=== PATIENT | female | born 1955 | race Caucasian/White ===

== ENCOUNTER → 2016-07-28 | Outpatient (CLI) | payer OTHER ==
[~2016-07-28] MED LIST: ENOX60IN SQ
[2016-07-28 15:17] LABS: BASO % 1.1 %; BASO ABS # 0.06 K/uL (0-0.2); COMPLETE YES; EOS % 2.1 %; HEMATOCRIT 43.3 % (37-47); IG% 0.4 %; LYMPH % 32.5 %; LYMPH ABS # 1.74 K/uL (1.2-3.4); MEAN CELL VOLUME 91.4 fL (80-100); MEAN CORPUSCULAR HEMOGLOBIN 29.7 pg (25-34); MEAN CORPUSCULAR HGB CONC 32.6 g/dl (32-36); MEAN PLATELET VOLUME 9.5 fL (7.4-10.4); MONO % 6.9 %; PLATELET COUNT 364 K/uL (130-400); RED BLOOD COUNT 4.74 M/uL (4.2-5.4); WHITE BLOOD COUNT 5.35 K/uL (4.8-10.8)
[2016-07-28 15:25] LABS: ALT/SGPT 21 U/L (12-78); AST/SGOT 17 U/L (15-37); BLOOD UREA NITROGEN 18 mg/dl (7-18); BUN/CREATININE RATIO 21.3 (10-20); CALCIUM 9.4 mg/dl (8.5-10.1); CARBON DIOXIDE 30 mmol/L (21-32); CHLORIDE 108 mmol/L (98-107); CREATININE 0.85 mg/dl (0.60-1.20); GLUCOSE 85 mg/dl (70-99); SODIUM 143 mmol/L (136-145)
[2016-07-28 15:27] LABS: ALB/GLOB RATIO 1.2 (0.9-2); ALKALINE PHOSPHATASE 89 U/L (45-117); CHOLESTEROL 228 mg/dl (0-200); CHOLESTEROL/HDL RATIO 2.6; HDL CHOLESTEROL 89 mg/dl; LDL CHOLESTEROL CALCULATED 128 mg/dl; TRIGLYCERIDES 53 mg/dl (0-150); VERY LOW DENSITY LIPOPROT CALC 11 mg/dl
== END | disposition home or self-care (01) ==
LOC: C.LAB1850 13:57
PROVIDERS: ATTEND Physician Assistant
DX: Z00.00 Encounter for general adult medical examination without abnormal findings (principal)

== ENCOUNTER → 2016-09-02 | Outpatient (CLI) | payer OTHER ==
--- NOTE | 2016-09-02 15:22 | MAMMOGRAPHY REPORT ---
BILATERAL DIGITAL SCREENING MAMMOGRAM TOMOSYNTHESIS WITH CAD: 09/02/2016 CLINICAL HISTORY: Routine screening. TECHNIQUE: Breast tomosynthesis in addition to standard 2D mammography was performed. Current study was also evaluated with a Computer Aided Detection (CAD) system. COMPARISON: Comparison is made to exams dated: 09/01/2015 mammogram, 04/22/2014 mammogram, 09/13/2012 m ammogram, 11/04/2010 mammogram, 10/01/2009 mammogram - [facility], and 09/12/2006. BREAST COMPOSITION: The tissue of both breasts is heterogeneously dense, which may obscure small mas ses. FINDINGS: No suspicious masses, calcifications, or areas of architectural distortion are noted in ei ther breast. There has been no significant interval change compared to prior exams. IMPRESSION: ACR BI-RADS CATEGORY 1: NEGATIVE There is no mammographic evidence of malignancy. A 1 year screening mammogram is recommended. The pa tient will receive written notification of the results. Approximately 10% of breast cancers are not detected with mammography. A negative mammographic report should not delay biopsy if a clinically suggestive mass is present. Estelle De La Rosa M.D. /:09/02/2016 12:37:32 Talent Management Specialist: Ray MOIMN(Mago)(M), [facility] letter sent: Normal 1/2 BI-RADS Code: ACR BI-RADS Category 1: Negative
== END | disposition home or self-care (01) ==
LOC: C.MAMM 10:06
PROVIDERS: ATTEND Internal Medicine
DX: Z12.31 Encounter for screening mammogram for malignant neoplasm of breast (principal)

== ENCOUNTER 2016-10-29 14:39 | Emergency (ER) | payer OTHER ==
[~2016-10-29] VITALS: Ht 154.9 cm; Wt 66.0 kg
[2016-10-29 14:46] VITALS: TEMP 36.9; Ht 154.9 cm; Wt 66.0 kg
[2016-10-29] MEDS ORDERED: SODIUM CHLORIDE 0.9% 1000ML 1,000 ML IV STA (15:11)
[2016-10-29] MEDS ORDERED: SODIUM CHLORIDE 0.9% 1000ML 500 ML IV STA (15:11)
[2016-10-29 16:09] LABS: BASO ABS # 0.05 K/uL (0-0.2); COMPLETE YES; EOS % 2.9 %; HEMATOCRIT 38.9 % (37-47); IG% 0.2 %; LYMPH % 32.6 %; LYMPH ABS # 1.68 K/uL (1.2-3.4); MEAN CELL VOLUME 90.7 fL (80-100); MEAN CORPUSCULAR HGB CONC 34.2 g/dl (32-36); MEAN PLATELET VOLUME 9.1 fL (7.4-10.4); MONO % 7.2 %; NEUT % 56.1 %; PLATELET COUNT 320 K/uL (130-400); RED BLOOD COUNT 4.29 M/uL (4.2-5.4); WHITE BLOOD COUNT 5.15 K/uL (4.8-10.8)
[2016-10-29 16:20] LABS: INR 0.9 (0.9-1.1); PROTHROMBIN TIME (PATIENT) 10.1 SECONDS (9.0-12.0)
[2016-10-29 16:24] LABS: ALT/SGPT 18 U/L (12-78); AST/SGOT 17 U/L (15-37); BLOOD UREA NITROGEN 14 mg/dl (7-18); BUN/CREATININE RATIO 16.4 (10-20); CARBON DIOXIDE 29 mmol/L (21-32); CHLORIDE 109 mmol/L (98-107); CREATININE 0.88 mg/dl (0.60-1.20); GLUCOSE 82 mg/dl (70-99); SODIUM 143 mmol/L (136-145)
[2016-10-29 16:29] LABS: ALB/GLOB RATIO 1.1 (0.9-2); ALKALINE PHOSPHATASE 84 U/L (45-117); CKMB/CK RATIO 1.1 (0-3.0)
--- NOTE | 2016-10-29 18:29 | DIAGNOSTIC IMAGING REPORT ---
LEFT VENOUS DOPP LOWER EXT UNILAT CLINICAL HISTORY: 61 years-old Female presenting with LEFT, EVAL DVT. TECHNIQUE: Real-time grayscale and color and spectral Doppler ultrasound imaging of the veins of the left lower extremity was performed. Compression and augmentation were also utilized. COMPARISON: None. FINDINGS: Left: Common femoral vein: Patent. Femoral vein: Patent. Greater saphenous vein: Patent. Popliteal vein: Patent. Calf veins: Limited visualization. Other: None. IMPRESSION: No evidence of deep venous thrombosis. Electronically signed by: Micah Ruiz M.D. 10/29/2016 6:28 PM Dictated Date/Time: 10/29/2016 6:26 PM
--- NOTE | 2016-10-29 18:50 | DIAGNOSTIC IMAGING REPORT ---
CHEST 2 VIEWS ROUTINE CLINICAL HISTORY: 61 years-old Female presenting with LEFT CHEST PAIN. TECHNIQUE: PA and lateral views of the chest were obtained. COMPARISON: 06/03/2008. FINDINGS: Cardiomediastinal silhouette normal. Lungs and pleural spaces clear. Osseous structures normal. Cholecystectomy clips. IMPRESSION: 1. No acute cardiopulmonary disease. Electronically signed by: Micah Ruiz M.D. 10/29/2016 6:48 PM Dictated Date/Time: 10/29/2016 6:48 PM
--- NOTE | 2016-10-29 18:52 | DIAGNOSTIC IMAGING REPORT ---
C-SPINE ROUTINE 4 OR 5 VIEWS CLINICAL HISTORY: 61 years-old Female presenting with LEFT CERVICAL RADICULOPATHY, pain in the neck and left arm, tingling extending into the left arm. TECHNIQUE: Lateral, bilateral oblique, frontal, and open-mouth odontoid views of the cervical spine were obtained. COMPARISON: None. FINDINGS: Straightening of normal cervical lordosis, possibly positional. Maintenance of vertebral body heights and intervertebral disc spaces. Minimal degenerative change evident. No osseous neural foraminal narrowing is radiographically apparent. Lateral masses of C1 articulate normally with C2. Normal predental interval. No prevertebral soft tissue swelling. IMPRESSION: Straightening of normal cervical lordosis likely positional. Minimal degenerative change without radiographic evidence of osseous neural foraminal narrowing. Electronically signed by: Micah Ruiz M.D. 10/29/2016 6:50 PM Dictated Date/Time: 10/29/2016 6:49 PM
--- NOTE | 2016-10-29 19:59 | DIAGNOSTIC IMAGING REPORT ---
(CHEST FOR PE) ANGIO WITH CLINICAL HISTORY: 61 years-old Female presenting with left chest pain, history of pulmonary embolus. TECHNIQUE: Multidetector CT angiography of the chest was performed after administration of intravenous contrast. 3-D volumetric and maximum intensity projection (MIP) images were subsequently reconstructed for review. IV contrast: 95 mL of Optiray 320. A dose lowering technique was used consistent with the principles of ALARA (as low as reasonably achievable). COMPARISON: 06/03/2008. CT DOSE (mGy.cm): The estimated cumulative dose is 174.59 mGy.cm. FINDINGS: Quill Machine Tender topogram: Unremarkable. Pulmonary vasculature: The study is adequate for assessment of the pulmonary vascular tree. No filling defect within the pulmonary arteries to suggest embolus. Main pulmonary artery not enlarged. No flattening of the interventricular septum. No intracardiac filling defect. Remaining chest: On soft tissue windows, normal thyroid and thoracic inlet. No axillary, supraclavicular, hilar, or mediastinal lymphadenopathy. Normal aorta. Normal heart size. No pericardial or pleural effusion. Cholecystectomy clips noted. On lung windows, dependent reticular opacities likely atelectasis. On bone windows, degenerative changes of the thoracic spine. IMPRESSION: 1. No evidence of pulmonary embolus or acute intrathoracic pathology. Electronically signed by: Micah Ruiz M.D. 10/29/2016 7:57 PM Dictated Date/Time: 10/29/2016 7:51 PM
[2016-10-29] MEDS ORDERED: OPTIRAY 320 IV PRN (20:00)
--- NOTE | 2016-10-29 20:04 | EMERGENCY ROOM VISIT NOTE ---
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 Patient had a DVT and PE in 1994, was treated with Coumadin. She states that it was "idiopathic" at that time. She had a cholecystectomy in spring, and a couple of weeks later was diagnosed with a left lower extremity DVT. She was treated with Lovenox for 4 days, then with Xarelto for almost a year. She had an ultrasound 1 year ago that showed that the DVT had cleared, and her doctor felt that it was reasonable to discontinue her anticoagulation. Patient reports that she traveled by vehicle to the [facility] about 10 days ago. While there, she began to notice pain in the left calf radiating to the popliteal space. She also reports some associated "pins and needles as "a sensation that her leg felt "like a log." She has lymphedema in the left lower extremity, and states that her left leg is chronically larger than her right. She denies any changes in this. She has not noticed any increased redness or warmth, but has had a few insect bites on the left lower leg. There is no injury or unusual activity that could have strained a muscle recently. She also has noticed some stabbing anterior left-sided chest pain, particularly worse when she takes a deep breath. She does feel it through to the left scapular region as well. She denies any palpitations. She has a known history of cervical spine issues and has been going to physical therapy for some time. She has chronic pins and needles and pain into the left arm, neck and into the axillary region. She states that she was having a difficult time discerning whether the pain in her chest was coming from her arm/neck or whether it was true chest pain. She returned from [place] by vehicle yesterday, and had a [address] She denies any symptoms in the right leg. Review of Systems Review of systems as per HPI. All other systems reviewed were negative. 10 systems reviewed. 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 See Problem List. Family History Cancer Hypertension Social History Smoking Status: Never Smoker Alcohol Use: none Housing Status: lives with significant other Occupation Status: employed Current/Historical Medications No Active Prescriptions or Reported Meds Physical Exam Vital Signs Date Time Temp Pulse Resp B/P (MAP) Pulse Ox O2 Delivery O2 Flow Rate FiO2 10/29/16 20:28 78 18 167/90 98 10/29/16 17:55 61 18 124/84 100 Room Air 10/29/16 16:03 63 18 122/78 97 Room Air 10/29/16 14:46 36.9 75 18 123/78 97 Room Air Physical Exam CONSTITUTIONAL: Patient is a pleasant, well-appearing 61-year-old white female who is awake and alert and in no acute distress. EYES: Pupils equal, round, reactive to light and accommodation. EOMs intact without nystagmus. Sclera are anicteric. ENT: Tympanic membranes intact, with normal landmarks. External canals are clear. Oral and nasopharynx are clear. Mucous membranes are moist, no lesions , tongue and gums appear normal. NECK: No bruits auscultated. Supple without lymphadenopathy. No thyromegaly. No meningeal signs. Full active range of motion without discomfort. CARDIOVASCULAR: Regular rate and rhythm, with normal S1 and S2, no murmur or gallop or rub is heard. No carotid bruits auscultated. No JVD. Peripheral pulses easy to palpable. RESPIRATORY: Breath sounds equal and clear to auscultation without wheezes, rales, or rhonchi heard. Full and equal chest expansion without accessory muscle use or retractions. MUSCULOSKELETAL: Full range of motion of extremities x 4 with good strength. No cyanosis, edema, joint tenderness or swelling. No deformity. Minimal tenderness noted in the medial aspect of the left calf. There is no erythema, increased warmth or induration. No palpable cords. INTEGUMENTARY: No lesions or rash, normal skin turgor. NEUROLOGICAL: Alert, oriented, and cooperative. Cranial nerves, sensation and strength grossly intact. Upper and lower extremity DTRs are equal and symmetrical bilaterally. Pupils round, equal, and react to light, EOMs are full. LYMPH: No lymphadenopathy. Medical Decision & Procedures ER Provider Diagnostic Interpretation: (CHEST FOR PE) ANGIO WITH CLINICAL HISTORY: 61 years-old Female presenting with left chest pain, history of pulmonary embolus. TECHNIQUE: Multidetector CT angiography of the chest was performed after administration of intravenous contrast. 3-D volumetric and maximum intensity projection (MIP) images were subsequently reconstructed for review. IV contrast: 95 mL of Optiray 320. A dose lowering technique was used consistent with the principles of ALARA (as low as reasonably achievable). COMPARISON: 06/03/2008. CT DOSE (mGy.cm): The estimated cumulative dose is 174.59 mGy.cm. FINDINGS: Integration Analyst topogram: Unremarkable. Pulmonary vasculature: The study is adequate for assessment of the pulmonary vascular tree. No filling defect within the pulmonary arteries to suggest embolus. Main pulmonary artery not enlarged. No flattening of the interventricular septum. No intracardiac filling defect. Remaining chest: On soft tissue windows, normal thyroid and thoracic inlet. No axillary, supraclavicular, hilar, or mediastinal lymphadenopathy. Normal aorta. Normal heart size. No pericardial or pleural effusion. Cholecystectomy clips noted. On lung windows, dependent reticular opacities likely atelectasis. On bone windows, degenerative changes of the thoracic spine. IMPRESSION: 1. No evidence of pulmonary embolus or acute intrathoracic pathology. CHEST 2 VIEWS ROUTINE CLINICAL HISTORY: 61 years-old Female presenting with LEFT CHEST PAIN. TECHNIQUE: PA and lateral views of the chest were obtained. COMPARISON: 06/03/2008. FINDINGS: Cardiomediastinal silhouette normal. Lungs and pleural spaces clear. Osseous structures normal. Cholecystectomy clips. IMPRESSION: 1. No acute cardiopulmonary disease. C-SPINE ROUTINE 4 OR 5 VIEWS CLINICAL HISTORY: 61 years-old Female presenting with LEFT CERVICAL RADICULOPATHY, pain in the neck and left arm, tingling extending into the left arm. TECHNIQUE: Lateral, bilateral oblique, frontal, and open-mouth odontoid views of the cervical spine were obtained. COMPARISON: None. FINDINGS: Straightening of normal cervical lordosis, possibly positional. Maintenance of vertebral body heights and intervertebral disc spaces. Minimal degenerative change evident. No osseous neural foraminal narrowing is radiographically apparent. Lateral masses of C1 articulate normally with C2. Normal predental interval. No prevertebral soft tissue swelling. IMPRESSION: Straightening of normal cervical lordosis likely positional. Minimal degenerative change without radiographic evidence of osseous neural foraminal narrowing. LEFT VENOUS DOPP LOWER EXT UNILAT CLINICAL HISTORY: 61 years-old Female presenting with LEFT, EVAL DVT. TECHNIQUE: Real-time grayscale and color and spectral Doppler ultrasound imaging of the veins of the left lower extremity was performed. Compression and augmentation were also utilized. COMPARISON: None. FINDINGS: Left: Common femoral vein: Patent. Femoral vein: Patent. Greater saphenous vein: Patent. Popliteal vein: Patent. Calf veins: Limited visualization. Other: None. IMPRESSION: No evidence of deep venous thrombosis. Laboratory Results 10/29/16 16:00 Red Blood Count 4.29, Mean Corpuscular Volume 90.7, Mean Corpuscular Hemoglobin 31.0, Mean Corpuscular Hemoglobin Concent 34.2, Mean Platelet Volume 9.1, Neutrophils (%) (Auto) 56.1, Lymphocytes (%) (Auto) 32.6, Monocytes (%) (Auto) 7.2, Eosinophils (%) (Auto) 2.9, Basophils (%) (Auto) 1.0, Neutrophils # (Auto) 2.89, Lymphocytes # (Auto) 1.68, Monocytes # (Auto) 0.37, Eosinophils # (Auto) 0.15, Basophils # (Auto) 0.05 10/29/16 16:00 Test 10/29/16 16:00 White Blood Count 5.15 K/uL (4.8-10.8) Red Blood Count 4.29 M/uL (4.2-5.4) Hemoglobin 13.3 g/dL (12.0-16.0) Hematocrit 38.9 % (37-47) Mean Corpuscular Volume 90.7 fL (80-100) Mean Corpuscular Hemoglobin 31.0 pg (25-34) Mean Corpuscular Hemoglobin Concent 34.2 g/dl (32-36) Platelet Count 320 K/uL (130-400) Mean Platelet Volume 9.1 fL (7.4-10.4) Neutrophils (%) (Auto) 56.1 % Lymphocytes (%) (Auto) 32.6 % Monocytes (%) (Auto) 7.2 % Eosinophils (%) (Auto) 2.9 % Basophils (%) (Auto) 1.0 % Neutrophils # (Auto) 2.89 K/uL (1.4-6.5) Lymphocytes # (Auto) 1.68 K/uL (1.2-3.4) Monocytes # (Auto) 0.37 K/uL (0.11-0.59) Eosinophils # (Auto) 0.15 K/uL (0-0.5) Basophils # (Auto) 0.05 K/uL (0-0.2) RDW Standard Deviation 44.9 fL (36.4-46.3) RDW Coefficient of Variation 13.6 % (11.5-14.5) Immature Granulocyte % (Auto) 0.2 % Immature Granulocyte # (Auto) 0.01 K/uL (0.00-0.02) Prothrombin Time 10.1 SECONDS (9.0-12.0) Prothromb Time International Ratio 0.9 (0.9-1.1) Activated Partial Thromboplast Time 25.4 SECONDS (21.0-31.0) Partial Thromboplastin Ratio 1.0 Anion Gap 5.0 mmol/L (3-11) Est Creatinine Clear Calc Drug Dose 59.1 ml/min Estimated GFR () 82.8 Estimated GFR (Non- 71.4 BUN/Creatinine Ratio 16.4 (10-20) Calcium Level 9.0 mg/dl (8.5-10.1) Total Bilirubin 0.4 mg/dl (0.2-1) Aspartate Amino Transf (AST/SGOT) 17 U/L (15-37) Alanine Aminotransferase (ALT/SGPT) 18 U/L (12-78) Alkaline Phosphatase 84 U/L (45-117) Total Creatine Kinase 97 U/L (26-192) Creatine Kinase MB 1.1 ng/ml (0.5-3.6) Creatine Kinase MB Ratio 1.1 (0-3.0) Troponin I < 0.015 ng/ml (0-0.045) Total Protein 6.8 gm/dl (6.4-8.2) Albumin 3.6 gm/dl (3.4-5.0) Globulin 3.2 gm/dl (2.5-4.0) Albumin/Globulin Ratio 1.1 (0.9-2) Medications Administered Medications (Trade) Dose Ordered Sig/Dariana Route Start Time Stop Time Status Last Admin Dose Admin Sodium Chloride 500 ml @ 999 mls/hr Q31M STAT IV 10/29/16 15:11 10/29/16 15:41 DC 10/29/16 16:02 999 MLS/HR Sodium Chloride 1,000 ml @ 250 mls/hr Q4H STAT IV 10/29/16 15:11 10/29/16 19:10 DC 10/29/16 16:03 250 MLS/HR ECG Indication: chest pain Rate (beats per minute): 63 Rhythm: normal sinus Findings: no acute ischemic change, no ectopy Change: no significant change ED Course The patient was seen and evaluated as above. She has a history of DVT and PE and does have a prothrombin gene mutation which can contribute to a hypercoagulable state. She presents the emergency department for evaluation of left calf pain with associated pleuritic left-sided chest pain, and the situation of recent travel. IV lock was initiated. Laboratory studies were collected including CBC with differential, coags, cardiac enzymes and CMP. Chest x-ray and C-spine x-rays were obtained, ultrasound of the left lower extremity was performed. The patient was hydrated with normal saline solution. She declined any medication needs while in the emergency department. EKG was performed and was as noted above. Chest x-ray was unremarkable. C-spine x-ray noted mild degenerative changes. Ultrasound of the left lower extremity was negative for DVT. Laboratory studies were largely unremarkable. White count is not elevated. H& H and platelet count is normal. INR is 0.9. Electrolytes, renal functions, liver functions are all within normal limits. Cardiac enzymes are negative 1 with symptoms greater than 24 hours. All laboratory and diagnostic imaging studies were reviewed with the patient and her significant other at length. Given her history of DVT and PE as well as the prothrombin gene mutation however, I did discuss my concern with her regarding a pulmonary embolus. I did not feel that a d-dimer was appropriate for this patient as she is not felt to be low risk. I did discuss with her risks, benefits and alternatives to a CT of her chest, and using shared decision making, she was agreeable to proceed. Chest CT did not show any evidence for PE. CT findings were discussed with the patient. She was reassured. She does have some progressively worsening left neck and left arm pain which could be attributed to the previously diagnosed cervical radiculopathy, and she was encouraged to have this reevaluated by her primary care provider. She reports that she has not had an MRI for some time. Differential diagnoses entertained included acute myocardial infarction, acute coronary syndrome, myocarditis, pericarditis, pulmonary embolism, pneumonia, pneumothorax, cardiomyopathy, congestive heart failure, musculoskeletal, anxiety , costochondritis, DVT, superficial thrombophlebitis, cellulitis, muscle strain , dependent edema, lymphedema, among others. Medical Decision See emergency Department course. Medication Reconcilliation Current Medication List: was personally reviewed by de Blood Pressure Screening Patient's blood pressure: Normal blood pressure Blood pressure disposition: Did not require urgent referral Impression Primary Impression: Pain of left calf Additional Impression: Pleuritic chest pain Departure Information Prescriptions No Active Prescriptions or Reported Meds Referrals Alexandro Burgos M.D. (PCP) Patient Instructions [facility] Additional Instructions Ibuprofen(Motrin, Advil) may be used for fever or pain. Use 600mg every six hours as needed. Take with food. Avoid using more than 2400mg in a 24 hour period. Do not use 2400mg per day for more than three consecutive days without physician direction. Prolonged inappropriate use can lead to stomach upset or ulcers. (AND/OR) Acetaminophen(Tylenol) may be used for fever or pain. Use 1000mg every six hours as needed. Avoid using more than 3000mg in a 24 hour period. Rest and drink plenty of fluids as tolerated. Continue current medications. Avoid strenuous activities and anything that worsens your pain. Resume normal activities once your symptoms resolve. Return to the ER immediately for worsening or persistent chest pain, abdominal pain, vomiting, fevers, chest pains, difficulty breathing, worsening of your condition, or as needed. Follow up with your primary physician in 2-3 days for a recheck of your current condition. Problem Qualifiers
[2016-10-29 20:28] VITALS: BP 167/90; PULSE 78; O2SAT 98
== END 2016-10-29 20:25 | disposition home or self-care (01) ==
LOC: C.EDB 14:40 → C.EDC 20:25
DX: M79.605 Pain in left leg (principal); R07.1 Chest pain on breathing; I89.0 Lymphedema, not elsewhere classified; M54.2 Cervicalgia; G89.29 Other chronic pain; M79.602 Pain in left arm; N84.0 Polyp of corpus uteri; D68.52 Prothrombin gene mutation; D25.9 Leiomyoma of uterus, unspecified; Z86.711 Personal history of pulmonary embolism; Z86.718 Personal history of other venous thrombosis and embolism; Z90.710 Acquired absence of both cervix and uterus; Z82.49 Family history of ischemic heart disease and other diseases of the circulatory system

== ENCOUNTER → 2017-03-09 | Outpatient (CLI) | payer OTHER ==
--- NOTE | 2017-03-09 12:14 | DIAGNOSTIC IMAGING REPORT ---
LUMBAR SPINE W/O CONTRAST HISTORY: Back pain. Spinal stenosis. Leg weakness. M48.00 Spinal [id number] Leg [id number] TECHNIQUE: Multiplanar multisequence MRI of the lumbar spine was performed without the use of contrast. COMPARISON: None. FINDINGS: For the purpose of the report the L5-S1 disc space will be located on axial image 23 of 25. Mild degenerative disc change throughout the entire lumbar region. No significant bone marrow replacing process. Minimal reactive edema of the endplates at T11-T12 on a degenerative basis. L1-L2: Minimal broad-based disc bulge. Minimal impact upon the anterior thecal sac. Neuroforamina are patent bilaterally. L2-L3: No significant central canal or neural foraminal narrowing. L3-L4: Moderate broad-based disc bulge. Mild impact anterior thecal sac. Mild narrowing left and to a lesser extent right neural foramina. L4-L5: Mild broad-based disc herniation. Mild impact anterior thecal sac. Mild narrowing of the neuroforamina bilaterally. L5-S1: Mild right posterior disc herniation. Moderate impact right anterior thecal sac. Moderate narrowing right neuroforamina. IMPRESSION: 1. Mild right posterior disc herniation L5-S1 with moderate impact upon the anterior thecal sac and moderate narrowing right neuroforamina.. 2. Additional multilevel bulging discs as described with only mild impact upon the anterior thecal sac and neural foramina bilaterally. The above report was generated using voice recognition software. It may contain grammatical, syntax or spelling errors. Electronically signed by: Dedrick Madera M.D. 03/09/2017 12:12 PM Dictated Date/Time: 03/09/2017 12:07 PM
== END | disposition home or self-care (01) ==
LOC: C.MRIBC 11:07
PROVIDERS: ATTEND Internal Medicine
DX: M48.00 Spinal stenosis, site unspecified (principal); R29.898 Other symptoms and signs involving the musculoskeletal system